=== PATIENT | male | born 1975 | race African-American/Black ===

== ENCOUNTER 2021-11-16 08:44 | Emergency (ER) | payer OTHER ==
[2021-11-16 08:50] VITALS: RESP 18; TEMP 97.5
[2021-11-16] MEDS ORDERED: KETOROLAC 15 MG/ML 1 ML VIAL IM STA (09:02)
[2021-11-16] MEDS ORDERED: diazePAM 5 MG/ML 1 ML VIAL IM STA (09:02)
--- NOTE | 2021-11-16 09:14 | ED ---
General Adult HPI - General Chief complaint: Neck Pain/Injury Stated complaint: shoulder & sorensen pain Time Seen by Provider: 11/16/21 08:47 Source: patient, RN notes reviewed, old records reviewed Mode of arrival: ambulatory Limitations: no limitations - History of Present Illness Initial comments: 46-year-old male presenting for evaluation of neck pain. Pain is bilateral, in his both upper and lower neck. He states began after doing pushups about a week ago. He's had pain with movement or stretching since that time. His been taking 600 Motrin without significant improvement. No fever. No chest pain. No dyspnea. No fall or trauma reported. - Related Data Previous Rx's Medication Instructions Recorded Cyclobenzaprine [Flexeril] 10 mg PO TID PRN 3 Days #9 tab 11/16/21 Ibuprofen [Motrin] 600 mg PO Q8HR PRN #24 tab 11/16/21 Allergies Allergy/AdvReac Type Severity Reaction Status Date / Time No Known Allergies Allergy Verified 11/16/21 08:50 Review of Systems ROS Statement: Those systems with pertinent positive or pertinent negative responses have been documented in the HPI. ROS Other: All systems not noted in ROS Statement are negative. Past Medical History Past Medical History: Diabetes Mellitus History of Any Multi-Drug Resistant Organisms: None Reported Additional Past Surgical History / Comment(s): ascending testicle sx Past Psychological History: No Psychological Hx Reported Smoking Status: Never smoker Past Alcohol Use History: Rare Past Drug Use History: Marijuana General Exam Limitations: no limitations General appearance: alert, in no apparent distress Head exam: Present: atraumatic, normocephalic Eye exam: Present: normal appearance, PERRL ENT exam: Present: normal exam Neck exam: Present: tenderness, other (Pain and tenderness over the bilateral paraspinal muscles and trapezius.). Absent: meningismus, full ROM Respiratory exam: Present: normal lung sounds bilaterally. Absent: respiratory distress, wheezes Cardiovascular Exam: Present: regular rate, normal rhythm GI/Abdominal exam: Present: soft. Absent: distended Extremities exam: Present: normal inspection, normal capillary refill Neurological exam: Present: alert, oriented X3, CN II-XII intact, other (Normal strength throughout). Absent: motor sensory deficit Psychiatric exam: Present: normal affect, normal mood Skin exam: Present: warm, dry, intact. Absent: cyanosis, diaphoretic Course Vital Signs 11/16/21 11/16/21 08:45 09:52 Temperature 97.5 F L Pulse Rate 92 91 Respiratory 18 18 Rate Blood Pressure 184/107 154/90 O2 Sat by Pulse 100 98 Oximetry Medical Decision Making - Medical Decision Making 46-year-old male with paraspinal neck pain and spasm as well as bilateral trapezius pain and spasm. No injury. He states this occurred after doing pushups. Patient has good strength throughout. He does have some stiffness with range of motion. Initial blood pressure is quite high this improves with treatment of pain in the emergency department however remains high at 150/90. The patient will require PCP follow-up regarding this elevated blood pressure. He will be placed on muscle relaxer and Motrin. Disposition Clinical Impression: Strain of neck muscle Disposition: HOME SELF-CARE Condition: Good Instructions (If sedation given, give patient instructions): Cervical Strain (ED) Additional Instructions: Urine blood pressure was elevated in the emergency department. Please follow-up with your primary care physician regarding this elevated blood pressure. Prescriptions: Cyclobenzaprine [Flexeril] 10 mg PO TID PRN 3 Days #9 tab PRN Reason: Muscle Spasm Ibuprofen [Motrin] 600 mg PO Q8HR PRN #24 tab PRN Reason: Pain Is patient prescribed a controlled substance at d/c from ED?: No Referrals: None,Stated [Primary Care Provider] - 1-2 days Sergio Asif [STAFF PHYSICIAN] - 1-2 days Yusef Murillo MD [REFERRING] - 1-2 days Time of Disposition: 09:57
[2021-11-16 09:56] VITALS: BP 154/90; PULSE 91
== END 2021-11-16 10:14 | disposition home or self-care (01) ==
LOC: EC 08:44
DX: S16.1XXA Strain of muscle, fascia and tendon at neck level, initial encounter (principal); M62.838 Other muscle spasm; E11.9 Type 2 diabetes mellitus without complications; X58.XXXA Exposure to other specified factors, initial encounter; Y93.B2 Activity, push-ups, pull-ups, sit-ups
CPT/HCPCS: 99283; 96372; J1885; J3360

== ENCOUNTER 2021-12-21 07:36 | Emergency (ER) | payer OTHER ==
[2021-12-21 08:16] VITALS: BP 126/77; PULSE 100; RESP 16; TEMP 98.1
--- NOTE | 2021-12-21 08:35 | ED ---
Extremity Problem HPI - General Chief complaint: Recheck/Abnormal Lab/Rx Stated complaint: pain from port in arm Time Seen by Provider: 12/21/21 07:39 Source: patient, family, RN notes reviewed Mode of arrival: ambulatory Limitations: no limitations - History of Present Illness Initial comments: This is a 46-year-old male who presents to the emergency department for right arm pain. Patient had a PICC line placed in the right arm 5 days ago at [facility] for a spinal abscess. When he woke up this morning, he had severe pain in the shoulder area going down the arm. The pain has gotten much better after he flushed the line with saline and heparin. He does not currently have any follow-up appointments scheduled with [facility] or [facility] where the spinal abscess was diagnosed. Denies any fevers, chills, sore throat, cough, dyspnea, chest pain, palpitations, abdominal pain, nausea, vomiting, diarrhea, back pain, or headaches. MD Complaint: extremity pain Location: right, upper extremity History of Same: No Associated Symptoms: denies other symptoms - Related Data Previous Rx's Medication Instructions Recorded Cyclobenzaprine [Flexeril] 10 mg PO TID PRN 3 Days #9 tab 11/16/21 Ibuprofen [Motrin] 600 mg PO Q8HR PRN #24 tab 11/16/21 Allergies Allergy/AdvReac Type Severity Reaction Status Date / Time No Known Allergies Allergy Verified 12/21/21 08:16 Review of Systems ROS Statement: Those systems with pertinent positive or pertinent negative responses have been documented in the HPI. ROS Other: All systems not noted in ROS Statement are negative. Past Medical History Past Medical History: Diabetes Mellitus Additional Past Medical History / Comment(s): abscess on spine History of Any Multi-Drug Resistant Organisms: None Reported Additional Past Surgical History / Comment(s): ascending testicle sx, picc line Past Psychological History: No Psychological Hx Reported Smoking Status: Never smoker Past Alcohol Use History: Rare Past Drug Use History: Marijuana General Exam Limitations: no limitations General appearance: alert, in no apparent distress Head exam: Present: atraumatic, normocephalic, normal inspection Respiratory exam: Present: normal lung sounds bilaterally. Absent: respiratory distress, wheezes, rales, rhonchi, stridor Cardiovascular Exam: Present: regular rate, normal rhythm, normal heart sounds. Absent: systolic murmur, diastolic murmur, rubs, gallop, clicks Extremities exam: Present: other (PICC line in place without any surrounding swelling, erythema, or tenderness. ) Neurological exam: Present: alert, oriented X3, CN II-XII intact Psychiatric exam: Present: normal affect, normal mood Skin exam: Present: warm, dry, intact, normal color. Absent: rash Course Vital Signs 12/21/21 08:13 Temperature 98.1 F Pulse Rate 100 Respiratory 16 Rate Blood Pressure 126/77 O2 Sat by Pulse 100 Oximetry Medical Decision Making - Medical Decision Making This is a 46-year-old male who presents to the emergency department for right arm pain. Duplex ultrasound of the right upper extremity was obtained to evaluate for any evidence of a DVT. This revealed a superficial venous thrombus in the right cephalic vein and no evidence of a DVT. Patient advised to apply warm compresses, use Héctor wraps, elevate the arm, and take NSAIDs. I also discussed signs and symptoms of a DVT, such as increased pain, redness, and swelling, which indicate the need to return. Return precautions reviewed in depth, the patient is instructed to return to the emergency department with any new, worsening, or concerning symptoms. Patient verbalized understanding. This case was discussed in detail with the attending ED physician. Presentation, findings, and treatment plan discussed in detail as well. - Radiology Data Radiology results: report reviewed, image reviewed Disposition Clinical Impression: Superficial venous thrombosis of right arm Disposition: HOME SELF-CARE Additional Instructions: Return to the emergency department with any new, worsening, or concerning symptoms, such as increased pain, redness, or swelling of the arm. Apply warm compresses, take antiinflammatories such as Ibuprofen, and elevate the arm. You can also try wrapping the arm with an Héctor wrap. Is patient prescribed a controlled substance at d/c from ED?: No Referrals: Tasia Corcoran MD [Primary Care Provider] - 1-2 days
--- NOTE | 2021-12-21 09:19 | US ---
EXAMINATION TYPE: US venous doppler duplex UE RT DATE OF EXAM: 12/21/2021 COMPARISON: NONE CLINICAL HISTORY: Pain with PICC line. SIDE PERFORMED: Right Grayscale, color doppler, spectral doppler imaging performed of the deep veins of the right upper ext remity. There is normal flow, compressibility and vascular waveforms within the IJV, subclavian, axi llary, brachial, basilic, radial, and ulnar veins. *The PICC line is seen with flow around it in basilic, axilla, and subclavian vessels. There is thrombus seen in the cephalic vein at level of elbow, unable to follow as there is large Teg aderm type bandage over PICC line insertion. IMPRESSION: 1. No evidence of right upper extremity deep venous thrombosis. 2. Superficial venous thrombosis of the right cephalic vein. 3. Right upper extremity PICC line.
== END 2021-12-21 09:48 | disposition home or self-care (01) ==
LOC: EC 07:36
DX: I82.601 Acute embolism and thrombosis of unspecified veins of right upper extremity (principal); E11.9 Type 2 diabetes mellitus without complications; X58.XXXA Exposure to other specified factors, initial encounter
CPT/HCPCS: 99283

== ENCOUNTER → 2023-05-31 | Outpatient (CLI) | payer OTHER ==
--- NOTE | 2023-05-31 14:10 | US ---
EXAMINATION TYPE: US venous doppler duplex LE LT DATE OF EXAM: 05/31/2023 1:58 PM COMPARISON: NONE CLINICAL INDICATION: Male, 47 years old with history of L89.622 PRESSURE ULCER OF LEFT HEEL, STAGE 2; non healing wound on left foot; wound care center pt SIDE PERFORMED: left TECHNIQUE: The lower extremity deep venous system is examined utilizing real time linear array sonog melita with graded compression, doppler sonography and color-flow sonography. VESSELS IMAGED: Common Femoral Vein Deep Femoral Vein Greater Saphenous Vein * Femoral Vein Popliteal Vein Small Saphenous Vein * Proximal Calf Veins (* superficial vessels) Left Leg: Negative for LLE dvt IMPRESSION: 1. Left lower extremity ultrasound negative for deep venous thrombosis
--- NOTE | 2023-05-31 21:37 | US ---
EXAMINATION TYPE: US arterial LE single level DATE OF EXAM: 05/31/2023 2:17 PM CLINICAL INDICATION: Male, 47 years old with history of L89.622 PRUSSURE ULCER OF LEFT HEEL, STAGE 2; Wound bilateral feet for 2-3 years, bottom of foot near great toe. Wound left heel for 1-2 months. History of: Smoker: no Hypertension: yes Diabetic: yes Hyperlipidemia: no TIA/CVA: no Previous Vascular Surgery: no IL: no Vascular Ulcers: yes Claudication: no Gangrene: no Doppler Waveforms: Right: Multiphasic Left: Multiphasic Right Brachial Pressure: 130 Left Brachial Pressure: 143 Ankle-Brachial Indices: Right: 1.19 Left: 1.08 Toe Brachial Indices: Right: 0.78 Left: 0.62 IMPRESSION: 1. Ankle-brachial indices within normal limits. 2. Toe brachial indices chest shows moderate to severe disease.
== END | disposition home or self-care (01) ==
LOC: RADUSWWP 13:26
PROVIDERS: ATTEND Nurse Practitioner Family
DX: R93.89 Abnormal findings on diagnostic imaging of other specified body structures (principal); E11.621 Type 2 diabetes mellitus with foot ulcer; L89.622 Pressure ulcer of left heel, stage 2; L97.512 Non-pressure chronic ulcer of other part of right foot with fat layer exposed; L97.522 Non-pressure chronic ulcer of other part of left foot with fat layer exposed; M14.672 Charcot's joint, left ankle and foot; I10 Essential (primary) hypertension
CPT/HCPCS: 93922